=== PATIENT | female | born 1960 | race Caucasian/White ===

== ENCOUNTER 2024-09-09 14:00 | Emergency (ER) | payer SELFPAY ==
[2024-09-09 14:01] VITALS: BMI 30.7
[2024-09-09 14:05] VITALS: BP 97/58
--- NOTE | 2024-09-09 14:49 | ED.MUSCINJ ---
HPI-Injury
<JANELLE Neff - Last Filed: 09/09/24 18:30>
General
Chief Complaint: Musculo-Skeletal Complaint
Source: patient
Time Seen by Provider: 09/09/24 14:31
History of Present Illness-Injury
Initial Injury comments:
This is a 64 y/o female without significant PMH who presents to the emergency department via EMS after a fall. Pt arrives with her son who reportedly did not witness the fall since he was walking in front of the patient. She is unsure of the exact
mechanism of the fall but reports she was walking down a concrete ramp, 'tripped over my feet' and fell onto the R elbow and also injured her L ankle. Pt is unsure if she hit her head or LOC. She admits to muffled hearing, seeing 'swiggley lines'
and nausea after the fall but has since resolved. She denies headache and photophobia. Pt is unable to move the R arm and states any movement is extremely painful. EMS gave 75 mcg of Fentanyl en route which improved the pain but is now wearing off.
She is not on any blood thinners.
Phy Exam
<JANELLE Neff - Last Filed: 09/09/24 18:30>
Physical Exam
Physical Exam:
Skin: [place], soft, well-hydrated; turgor with instant recoil
Head: Atraumatic, normocephalic
Eyes: PERRLA
Chest and Lungs: muscle and respiratory effort symmetric without use of accessory muscles; vesicular breath sounds without adventitious sounds; even, quiet breathing
Heart: No lifts or heaves visible; regular rate and rhythm; No murmurs, rubs or gallops
PV: radial, dorsalis pedis and posterior tbial pulse intact bilaterally
MSK: L lateral malleolus with swelling, no ecchymosis, no bleeding, no abrasion; L lateral malleolus inferior with point tenderness to palpation; pain with plantar flexion of L foot; Denies examination of the R arm due to pain.
General Physical Exam
General Presentation: well appearing
General age: appears stated age
General Skin: warm and dry
General Habitus: obese
General Mental: alert
General Hydration: appears well hydrated
Injury Course
<ST TawandaME - Last Filed: 09/09/24 18:30>
Orders/Labs/Results
Orders:
Orders
09/09/24 14:29
CR Elbow - Right Min 3 Views Urgent
Comment:
Reason For Exam: elbow pain
09/09/24 15:04
Ankle, left 3 view CR [CR Ankle - Left Min 3 Views ] Urgent
Comment:
Reason For Exam: fall
09/09/24 15:06
HYDROmorphone [Dilaudid] 0.5 mg IV NOW STA
09/09/24 15:12
CT Head W/o Iv Contrast Urgent
Comment:
Reason For Exam: fall
09/09/24 16:26
HYDROmorphone [Dilaudid] 0.5 mg IV NOW STA
09/09/24 16:57
Splints/Slings/Crut- Treatment ONCE
Location: Right
Type of Splint: Long Arm
Comment: posterior long arm
09/09/24 19:07
Oxycodone [Roxicodone] 5 mg PO NOW STA
<Brittney Hendrix MD - Last Filed: 09/09/24 19:29>
Orders/Labs/Results
Orders:
Orders
09/09/24 14:29
CR Elbow - Right Min 3 Views Urgent
Comment:
Reason For Exam: elbow pain
09/09/24 15:04
Ankle, left 3 view CR [CR Ankle - Left Min 3 Views ] Urgent
Comment:
Reason For Exam: fall
09/09/24 15:06
HYDROmorphone [Dilaudid] 0.5 mg IV NOW STA
09/09/24 15:12
CT Head W/o Iv Contrast Urgent
Comment:
Reason For Exam: fall
09/09/24 16:26
HYDROmorphone [Dilaudid] 0.5 mg IV NOW STA
09/09/24 16:57
Splints/Slings/Crut- Treatment ONCE
Location: Right
Type of Splint: Long Arm
Comment: posterior long arm
09/09/24 19:07
Oxycodone [Roxicodone] 5 mg PO NOW STA
<JANELLE Neff - Last Filed: 09/09/24 18:30>
MDM/Problems Addressed
MDM/Problems Addressed:
This is a 64 y/o female who fell and injured her R elbow, L ankle and possible head strike. Pt is unable to move R upper extremity and declines physical exam until pain medication given. L lateral malleolus with point tenderness to inferior aspect,
swelling, and pain with plantar flexion. Distal pulses intact. No pain or tenderness to palpation of fibula, making [place] fracture unlikely. Will obtain xray of L ankle and R elbow. Will obtain CT head to r/o intracranial hemorrhage due to
muffled hearing, vision disturbance and nausea post fall.
<JANELLE Neff - Last Filed: 09/09/24 18:30>
*Critical Care Note
Total Time (30-74mins, 75-104mins- exclusive of procedures): Not Applicable
ED Attending Note
<JANELLE Neff - Last Filed: 09/09/24 18:30>
-
Portions of this chart may have been created with voice recognition software.� Occasional wrong word or��sound alike� substitutions may have occurred due to the inherent limitations of voice recognition software.
<Brittney Hendrix MD - Last Filed: 09/09/24 19:29>
ED Attending Note
Patient seen and examined by attending physician: Yes
I performed the substantive portion of visit, reviewed & personally made and approve the management plan that is documented in note by myself or LIZETTE.: Yes
ED Attending Note:
I have seen and evaluated the patient with a [id number] encounter. I have spoken to the [PA student] and involved in the medical history, the physical exam, medical decision making.
Evaluation and management service: agree unless noted differently below.
Results interpretation: agree unless noted differently below.
64-year-old woman presenting to the emergency department after a fall. Patient states that she was walking and then tripped over her feet. She is unsure if she hit her head. She does state that she landed on her elbow and her ankle. She is
having significant ankle pain and elbow pain. She states that after she fell she had extreme pain was nauseous and had some ringing in her ears. She did not pass out but is having difficulty remembering the events. No numbness tingling. She is
having some weakness secondary to the pain. Per medics they did give her fentanyl which did help significantly.
GENERAL: no acute distress
HEENT: atraumatic, extraocular muscles intact, pupils equal and reactive no signs of entrapment
NECK: no midline tenderness, normal range of motion
BACK: no midline tenderness, no other obvious trauma
CHEST: no tenderness, no flail segment
LUNGS: clear to auscultation bilaterally
CARDIOVASCULAR: regular rate and rhythm
ABDOMEN: soft, non-tender, no masses, no other obvious trauma
PELVIS: stable, no obvious injury
EXTREMITIES: moving all extremities, distal pulses intact, right elbow tenderness to palpation, normal cap refill, neurovascularly intact. Left ankle with tenderness over lateral malleolus with mild swelling. Some pain with dorsiflexion. Palpable
DP pulses, sensation intact
NEUROLOGIC: awake, alert x 3, no focal deficits
64-year-old woman presented emergency department after a fall. Fall does appear mechanical in nature however patient is unsure if she hit her head. It does sound that she had a vagal reaction secondary to the pain after the fall. On exam patient
with tenderness over her elbow and ankle. Concern for fracture versus traumatic intracranial injury. Will obtain CT scan of the head and x-ray of the elbow and ankle. Will pain control.
X-ray per my interpretation with proximal ulnar fracture. Will splint in posterior long-arm. X-ray of the ankle without any acute fracture. CT scan of the head negative. Patient is pain control. She is ambulatory. Will discharge this time.
Discharge Plan
Departure
Patient Disposition: Home (Routine Discharge)
Date of Disposition: 09/09/24
Time of Disposition: 19:07
Patient with high blood pressure during this ER visit?: No
Discharge Problem:
Elbow fracture, right
Instructions: How to Use a Shoulder Sling, Splint Care
Prescriptions:
New
oxycodone 5 mg tablet
5 mg PO Q6H PRN (Reason: Pain) Qty: 7 0RF
Referrals:
Bigg Duarn MD [Active] -
UNKNOWN - PT DOES,NOT KNOW [Family Provider] -
Activity Restrictions/Additional Instructions:
We discussed pain medications:
You may take Tylenol (also known as Acetaminophen) for pain.
You may take 1000mg Acetaminophen (two extra-strength tablets) per dose, which should be taken every 6-8 hours, or three times a day.
If you have normal strength Tylenol, you can take 650mg (two normal strength tablets) every 4-6 hours.
Do not take more than 3,000mg (3 grams) of Acetaminophen per day.
Never take more than as directed on the bottle.
You may also take Ibuprofen (also known as Motrin or Advil). If taking with Tylenol, alternate and take between dosing.
You may take 400-800mg of Ibuprofen per dose, which should be taken every 6-8 hours.
Do not take more than 3200mg (3.2 grams) of Ibuprofen per day.
You may use Oxycodone for severe or breakthrough pain. This medication can cause constipation and drowsiness. Do not drive or make important decisions while taking it. Consider using a laxative such as Senna while taking this medication.
Please see your primary care doctor soon to be reevaluated and to make sure that you are improving. We have included information about establishing care with a doctor if you do not have one.
We talked about your evaluation, diagnosis, and treatment in the Emergency Department today. You must see your primary doctor for recheck and followup care in order to evaluate your progress or any changes. Have your doctor recheck the test
results/information from the ED visit. As discussed, RETURN to the ED if you develop worsening/changing symptoms or have no improvement in symptoms after the treatments provided.
Interventions
Interventions:
*Risk Screen - Suicide Last Done: 09/09/24 14:05
*General Assessment Last Done: 09/09/24 14:05
*Neglect/Abuse Screening Last Done: 09/09/24 14:05
ED- Fall Risk Assessment Last Done: 09/09/24 14:05
*Nursing Disposition Last Done: 09/09/24 18:40
ED-Musculoskeletal Assessment Last Done: 09/09/24 14:05
Discharge Date and Time
Discharge Date/Time: 09/09/24 19:14
Print Language: AZERI
[2024-09-09] MEDS: DILAUDID 0.5 MG IV ×2 (15:09→16:29)
[2024-09-09 16:22] VITALS: BP 121/57
[2024-09-09 17:35] VITALS: BP 114/66
[2024-09-09 18:37] VITALS: BP 100/64
[2024-09-09] MEDS: ROXICODONE 5 MG PO (19:09)
== END 2024-09-09 19:14 | disposition home or self-care (01) ==
LOC: EMR 14:00
PROVIDERS: EMERGENCY PHYSICIAN Student in an Organized Health Care Education/Training Program
DX: S52.001A Unspecified fracture of upper end of right ulna, initial encounter for closed fracture (principal); M25.572 Pain in left ankle and joints of left foot; W01.0XXA Fall on same level from slipping, tripping and stumbling without subsequent striking against object, initial encounter
CPT/HCPCS: 29105; 99284; 96374; 96376; 70450; 73080; 73610

== ENCOUNTER 2024-09-15 06:22 | Day surgery (SDC) | payer SELFPAY ==
[2024-09-15] VITALS (11 sets, daily range): BP systolic 114–127; BP diastolic 52–71; BMI 29.2
[2024-09-15] MEDS: CELEBREX 200 MG PO (15:01)
[2024-09-15] MEDS: TYLENOL 1000 MG PO (15:01)
[2024-09-15] MEDS: NORMOSOL-R/PLASMALYTE-A 1000 IV (15:02)
[2024-09-15 15:08] LABS: Hematocrit 39.1 % (37.0-47.0); Hemoglobin 13.3 g/dL (12.0-16.0); Mean Corpuscular Hgb 28.4 pg (27.0-31.0); Mean Corpuscular Volume 83.4 fL (81.0-99.0); Platelet Count 285 10^3/uL (130-400); Red Blood Cell Count 4.69 10^6/uL (4.20-5.40); Red Cell Dist. Width 14.1 % (11.5-14.5); White Blood Cell Count 6.2 10^3/uL (4.8-10.8)
[2024-09-15] MEDS: DILAUDID 0.5 MG IV ×2 (17:08→17:17)
[2024-09-15] MEDS: DILAUDID 0.25 MG IV (17:30)
[2024-09-15] MEDS: DEMEROL 12.5 MG IV (17:38)
[2024-09-15] MEDS: ROXICODONE 5 MG PO (18:34)
== END 2024-09-15 19:09 | disposition home or self-care (01) ==
LOC: SDS 06:22
PROVIDERS: ATTENDING PHYSICIAN Orthopaedic Surgery Hand Surgery
DX: S52.021A Displaced fracture of olecranon process without intraarticular extension of right ulna, initial encounter for closed fracture (principal); W19.XXXA Unspecified fall, initial encounter
CPT/HCPCS: 25609; 85027; 93005

== ENCOUNTER → 2025-03-17 11:19 | Outpatient (REF) | payer MEDICARE, OTHER, SELFPAY | LOC: RAD 11:19 | PROVIDERS: ATTENDING PHYSICIAN Student in an Organized Health Care Education/Training Program | DX: R19.8 Other specified symptoms and signs involving the digestive system and abdomen (principal) | CPT/HCPCS: 76700 ==

== ENCOUNTER → 2025-05-02 11:49 | Outpatient (REF) | payer MEDICARE, OTHER, SELFPAY | LOC: WDC 11:49 | PROVIDERS: ATTENDING PHYSICIAN Student in an Organized Health Care Education/Training Program | DX: Z12.31 Encounter for screening mammogram for malignant neoplasm of breast (principal) | CPT/HCPCS: 77063; 77067 ==